=== PATIENT | male | born 1935 | race Caucasian/White ===

== ENCOUNTER 2018-07-28 09:48 | Emergency (ER) | payer MEDICARE ==
[2018-07-28 10:36] LABS: #Eosinphils 0.2 thou/uL (0.0-0.7); #Lymphocytes 1.1 thou/uL (1.20-3.40); #Monocytes 0.8 thou/uL (0.11-0.59); #Neutrophils 3.7 thou/uL (1.40-6.50); %Basophils 0.5 % (0.0-1.0); %Eosinophils 3.2 % (0.0-10.0); %Lymphocytes 19.3 % (21.0-51.0); %Monocytes 13.4 % (0.0-10.0); %Neutrophils 63.5 % (42.0-75.0); Hemoglobin 13.8 g/dL (14.0-18.0); Mean Corpuscular HGB CONC 32.9 g/dL (32.0-36.0); Mean Corpuscular Hemoglobin 27.4 pg (27.0-31.0); Mean Corpuscular Volume 83.3 fL (78.0-98.0); Mean Platelet Volume 7.3 fL (7.4-10.4); Platelet Count 242 thou/uL (130-400); RBC Distribution Width 12.1 % (11.5-14.5); Red Blood Cell (RBC) Count 5.05 mill/uL (4.70-6.10); White Blood Cell (WBC) Count 5.7 thou/uL (4.8-10.8)
--- NOTE | 2018-07-28 10:54 | RAD ---
PORTABLE CHEST ONE VIEW: 07/28/2018 10:30 a.m. HISTORY: Syncope. COMPARISON: 01/21/2014 FINDINGS: The heart size is normal. No focal areas of consolidation, pneumothoraces, or pleural effusions is s een. IMPRESSION: No radiographic evidence of acute cardiopulmonary process. POS: C
[2018-07-28 10:57] LABS: ALT (SGPT) 20 U/L (8-55); AST (SGOT) 18 U/L (5-34); Albumin 3.8 g/dL (3.4-4.8); Alkaline Phosphatase 118 U/L (40-150); Anion Gap 12 mmol/L (10-20); BUN (Urea Nitrogen) 20 mg/dL (8.4-25.7); Bilirubin, Total 0.4 mg/dL (0.2-1.2); Calc. Creatinine Clearance 0 mL/min (70-130); Calcium 9.2 mg/dL (7.8-10.44); Carbon Dioxide 26 mmol/L (23-31); Chloride 108 mmol/L (98-107); Estimated GFR-MDRD 42; Globulin 2.7 g/dL (2.4-3.5); Glucose 129 mg/dL (83-110); Potassium 4.8 mmol/L (3.5-5.1); Protein, Total 6.5 g/dL (5.8-8.1); Sodium 141 mmol/L (136-145)
[2018-07-28] MEDS ORDERED: Ondansetron PF 4 MG/2 ML Vial ONE (11:30)
[2018-07-28 13:16] LABS: Bilirubin Negative (Negative); Blood, Urine Negative (Negative); Clarity CLEAR (Clear); Glucose, Urine (Dipstick) Negative (Negative); Leukocyte Negative (Negative); Nitrite Negative (Negative); Protein, Urine (Dipstick) 30 mg/dL (Neg-Trace); Specific Gravity, Urine 1.011 (1.002-1.036)
[2018-07-28 13:21] LABS: Bacteria/HPF None Seen HPF (None Seen); Hyaline Casts/LPF 0-3 HYALINE CAST LPF (0-3 Hyaline); Pathc Cast-AUWi Flag 0.27 (0-2.49); RBC/HPF 0-3 HPF (0-3); Squamous Epithelial None Seen HPF (0-3); WBC/HPF None Seen HPF (0-3)
== END 2018-07-28 13:29 | disposition home or self-care (01) ==
LOC: ERS 09:48
DX: R55 Syncope and collapse (principal); R00.1 Bradycardia, unspecified; I10 Essential (primary) hypertension; E11.9 Type 2 diabetes mellitus without complications; E78.5 Hyperlipidemia, unspecified; I48.91 Unspecified atrial fibrillation; G20 Parkinson's disease; Z87.891 Personal history of nicotine dependence; Z79.899 Other long term (current) drug therapy; Z79.84 Long term (current) use of oral hypoglycemic drugs
CPT/HCPCS: 36415; 71045; 80053; 81003; 81015; 83880; 84484; 85025; 93005; 96374; J2405

== ENCOUNTER 2022-04-29 01:27 | Inpatient (IN) | payer MEDICARE, OTHER ==
[2022-04-29 02:51] VITALS: BMI 24.5
[2022-04-29] MEDS ORDERED: Acetaminophen 325 MG TAB PO PRN (03:05)
[2022-04-29] MEDS ORDERED: Ondansetron ODT 4 MG TAB PO PRN (03:05)
[2022-04-29] MEDS ORDERED: Acetaminophen 650 MG Suppository PR PRN (03:05)
[2022-04-29] MEDS ORDERED: Ondansetron PF 4 MG/2 ML Vial IVP PRN (03:05)
[2022-04-29] MEDS ORDERED: Benzonatate 100 MG CAP PO PRN (03:29)
[2022-04-29] MEDS ORDERED: Dextrose 50% Abboject 50 ML SYRINGE SLOW IVP PRN (04:38)
[2022-04-29] MEDS ORDERED: Dextrose 5% in Water 1,000 ML IV PRN (04:38)
[2022-04-29] MEDS ORDERED: HumaLOG 300 UNITS/3 ML VIAL SC PRN ×2 (04:38)
[2022-04-29] MEDS ORDERED: Melatonin 3 MG TAB PO PRN (04:46)
[2022-04-29] MEDS: Levothyroxine Sodium 100 MCG TAB PO SCH (05:50)
[2022-04-29] MEDS: Sodium Chloride 0.9% 1,000 ML IV SCH ×2 (05:51→16:24)
[2022-04-29] MEDS ORDERED: Albuterol 200 PUFF (6.7GM INHALER) INH PRN (07:20)
[2022-04-29 07:38] LABS: Mean Corpuscular HGB CONC 33.6 g/dL (32.0-36.0); Mean Corpuscular Hemoglobin 28.4 pg (27.0-31.0); Mean Corpuscular Volume 84.6 fl (78.0-98.0); Mean Platelet Volume 7.6 fL (7.4-10.4); Platelet Count 181 10x3/uL (130-400); RBC Distribution Width 12.7 % (11.5-14.5); Red Blood Cell (RBC) Count 4.57 mill/uL (4.70-6.10); White Blood Cell (WBC) Count 4.3 10x3/uL (4.8-10.8)
[2022-04-29 07:42] LABS: Anion Gap 13 mmol/L (10-20); BUN (Urea Nitrogen) 22 mg/dL (8.4-25.7); Calc. Creatinine Clearance 39 mL/min (70-130); Calcium 9.1 mg/dL (7.8-10.44); Carbon Dioxide 19 mmol/L (23-31); Chloride 109 mmol/L (98-107); Estimated GFR 37; Glucose 178 mg/dL (83-110); Potassium 3.6 mmol/L (3.5-5.1); Sodium 137 mmol/L (136-145)
[2022-04-29] MEDS ORDERED: Ascorbic Acid 500 mg Chewable Tablet PO SCH (09:00)
[2022-04-29] MEDS ORDERED: Zinc Sulfate 220 MG CAP PO SCH (09:00)
[2022-04-29] MEDS: Carvedilol 25 MG TAB PO SCH ×2 (09:46→16:25)
[2022-04-29] MEDS: Cholecalciferol (Vitamin D3) 400 UNITS TAB PO SCH (09:47)
[2022-04-29] MEDS: Enoxaparin Sodium 40 MG/0.4 ML SYRINGE SC SCH (09:47)
[2022-04-29] MEDS: Ascorbic Acid 500 mg Chewable Tablet PO SCH (09:47)
[2022-04-29] MEDS: Zinc Sulfate 220 MG CAP PO SCH (09:47)
[2022-04-29] MEDS: Lisinopril 5 MG TAB PO SCH (09:47)
[2022-04-29] MEDS: (RENAL) NIRMATRELVIR 150 MG/RITONAVIR 100 MG TABLET PO SCH ×2 (09:48→20:24)
[2022-04-29 10:00] LABS: Band 6 % (5-11); Lymphocytes 6 % (21-51); MDiff Complete? YES; Monocytes 5 % (0-10); Neutrophil 52 % (42-75); Platelet Morphology Comment Appears Adequate; RBC Morphology Normal; Reactive Lymphocytes 31 % (0-10)
[2022-04-29] MEDS: Doxepin HCl 25 MG CAP PO SCH (20:23)
[2022-04-29] MEDS ORDERED: Rosuvastatin 10 MG TAB PO SCH (21:00)
[2022-04-30] MEDS: Levothyroxine Sodium 100 MCG TAB PO SCH (05:59)
[2022-04-30] MEDS: Ascorbic Acid 500 mg Chewable Tablet PO SCH (08:51)
[2022-04-30] MEDS: Enoxaparin Sodium 40 MG/0.4 ML SYRINGE SC SCH (08:51)
[2022-04-30] MEDS: Zinc Sulfate 220 MG CAP PO SCH (08:51)
[2022-04-30] MEDS: Lisinopril 5 MG TAB PO SCH (08:51)
[2022-04-30] MEDS: Cholecalciferol (Vitamin D3) 400 UNITS TAB PO SCH (08:51)
[2022-04-30] MEDS: Carvedilol 25 MG TAB PO SCH ×2 (08:51→16:21)
[2022-04-30] MEDS: (RENAL) NIRMATRELVIR 150 MG/RITONAVIR 100 MG TABLET PO SCH ×2 (08:56→21:48)
[2022-04-30] MEDS ORDERED: Cepastat Lozenges 1 LOZ PO PRN (19:20)
[2022-04-30] MEDS ORDERED: Chloraseptic Spray 180 ml Bottle PO PRN (20:10)
[2022-04-30] MEDS: Doxepin HCl 25 MG CAP PO SCH (21:47)
[2022-05-01] MEDS: Levothyroxine Sodium 100 MCG TAB PO SCH (05:19)
[2022-05-01 06:35] LABS: Hemoglobin 12.8 g/dL (14.0-18.0); Mean Corpuscular HGB CONC 33.8 g/dL (32.0-36.0); Mean Corpuscular Hemoglobin 28.9 pg (27.0-31.0); Mean Corpuscular Volume 85.4 fl (78.0-98.0); Mean Platelet Volume 7.4 fL (7.4-10.4); Platelet Count 174 10x3/uL (130-400); RBC Distribution Width 12.8 % (11.5-14.5); Red Blood Cell (RBC) Count 4.42 mill/uL (4.70-6.10); White Blood Cell (WBC) Count 4.7 10x3/uL (4.8-10.8)
[2022-05-01 06:44] LABS: Anion Gap 14 mmol/L (10-20); BUN (Urea Nitrogen) 21 mg/dL (8.4-25.7); Calc. Creatinine Clearance 42 mL/min (70-130); Calcium 9.1 mg/dL (7.8-10.44); Carbon Dioxide 21 mmol/L (23-31); Chloride 109 mmol/L (98-107); Estimated GFR 41; Glucose 91 mg/dL (83-110); Potassium 3.5 mmol/L (3.5-5.1); Sodium 140 mmol/L (136-145)
[2022-05-01 07:27] LABS: Eosinophils 3 % (0-10); Lymphocytes 12 % (21-51); MDiff Complete? YES; Monocytes 10 % (0-10); Neutrophil 74 % (42-75); Platelet Morphology Comment Appears Adequate
[2022-05-01] MEDS: glipiZIDE 5 MG TAB PO SCH (09:04)
[2022-05-01] MEDS: Zinc Sulfate 220 MG CAP PO SCH (09:04)
[2022-05-01] MEDS: Enoxaparin Sodium 40 MG/0.4 ML SYRINGE SC SCH (09:04)
[2022-05-01] MEDS: Cholecalciferol (Vitamin D3) 400 UNITS TAB PO SCH (09:04)
[2022-05-01] MEDS: Carvedilol 25 MG TAB PO SCH ×2 (09:04→16:43)
[2022-05-01] MEDS: Lisinopril 5 MG TAB PO SCH (09:04)
[2022-05-01] MEDS: Ascorbic Acid 500 mg Chewable Tablet PO SCH (09:04)
[2022-05-01] MEDS: (RENAL) NIRMATRELVIR 150 MG/RITONAVIR 100 MG TABLET PO SCH ×2 (09:05→20:19)
[2022-05-01] MEDS: Doxepin HCl 25 MG CAP PO SCH (20:19)
[2022-05-02] MEDS: Levothyroxine Sodium 100 MCG TAB PO SCH (05:27)
[2022-05-02 06:31] LABS: #Basophils 0.1 thou/uL (0.0-0.2); #Eosinphils 0.2 thou/uL (0.0-0.7); #Lymphocytes 0.6 thou/uL (1.20-3.40); #Monocytes 0.7 thou/uL (0.11-0.59); #Neutrophils 3.7 thou/uL (1.40-6.50); %Eosinophils 3.8 % (0.0-10.0); %Lymphocytes 11.6 % (21.0-51.0); %Monocytes 13.1 % (0.0-10.0); %Neutrophils 69.6 % (42.0-75.0); Hemoglobin 12.9 g/dL (14.0-18.0); Mean Corpuscular Hemoglobin 29.1 pg (27.0-31.0); Mean Corpuscular Volume 85.5 fl (78.0-98.0); Mean Platelet Volume 7.1 fL (7.4-10.4); Platelet Count 195 10x3/uL (130-400); RBC Distribution Width 12.7 % (11.5-14.5); Red Blood Cell (RBC) Count 4.44 mill/uL (4.70-6.10); White Blood Cell (WBC) Count 5.3 10x3/uL (4.8-10.8)
[2022-05-02 06:54] LABS: Anion Gap 11 mmol/L (10-20); BUN (Urea Nitrogen) 23 mg/dL (8.4-25.7); Calc. Creatinine Clearance 48 mL/min (70-130); Calcium 8.8 mg/dL (7.8-10.44); Carbon Dioxide 21 mmol/L (23-31); Chloride 110 mmol/L (98-107); Estimated GFR 49; Glucose 143 mg/dL (83-110); Potassium 3.2 mmol/L (3.5-5.1); Sodium 139 mmol/L (136-145)
[2022-05-02] MEDS: Lisinopril 5 MG TAB PO SCH (08:50)
[2022-05-02] MEDS: Cholecalciferol (Vitamin D3) 400 UNITS TAB PO SCH (08:50)
[2022-05-02] MEDS: Ascorbic Acid 500 mg Chewable Tablet PO SCH (08:51)
[2022-05-02] MEDS: Enoxaparin Sodium 40 MG/0.4 ML SYRINGE SC SCH (08:51)
[2022-05-02] MEDS: Zinc Sulfate 220 MG CAP PO SCH (08:51)
[2022-05-02] MEDS: Carvedilol 25 MG TAB PO SCH ×2 (08:51→16:44)
[2022-05-02] MEDS: glipiZIDE 5 MG TAB PO SCH (08:51)
[2022-05-02] MEDS: (RENAL) NIRMATRELVIR 150 MG/RITONAVIR 100 MG TABLET PO SCH ×2 (08:53→21:05)
[2022-05-02] MEDS: Doxepin HCl 25 MG CAP PO SCH (21:05)
[2022-05-03] MEDS: Levothyroxine Sodium 100 MCG TAB PO SCH (05:26)
[2022-05-03 07:43] LABS: #Eosinphils 0.2 thou/uL (0.0-0.7); #Lymphocytes 0.9 thou/uL (1.20-3.40); #Monocytes 0.6 thou/uL (0.11-0.59); #Neutrophils 2.8 thou/uL (1.40-6.50); %Basophils 0.3 % (0.0-1.0); %Eosinophils 3.8 % (0.0-10.0); %Lymphocytes 19.2 % (21.0-51.0); %Monocytes 14.2 % (0.0-10.0); %Neutrophils 62.5 % (42.0-75.0); Hemoglobin 12.9 g/dL (14.0-18.0); Mean Corpuscular HGB CONC 33.1 g/dL (32.0-36.0); Mean Corpuscular Hemoglobin 28.2 pg (27.0-31.0); Mean Corpuscular Volume 85.3 fl (78.0-98.0); Mean Platelet Volume 7.1 fL (7.4-10.4); Platelet Count 198 10x3/uL (130-400); RBC Distribution Width 12.4 % (11.5-14.5); Red Blood Cell (RBC) Count 4.57 mill/uL (4.70-6.10); White Blood Cell (WBC) Count 4.4 10x3/uL (4.8-10.8)
[2022-05-03 07:56] LABS: Anion Gap 12 mmol/L (10-20); BUN (Urea Nitrogen) 24 mg/dL (8.4-25.7); Calc. Creatinine Clearance 47 mL/min (70-130); Carbon Dioxide 20 mmol/L (23-31); Chloride 111 mmol/L (98-107); Estimated GFR 47; Glucose 84 mg/dL (83-110); Potassium 3.3 mmol/L (3.5-5.1); Sodium 140 mmol/L (136-145)
[2022-05-03] MEDS: Enoxaparin Sodium 40 MG/0.4 ML SYRINGE SC SCH (08:44)
[2022-05-03] MEDS: Carvedilol 25 MG TAB PO SCH ×2 (08:44→16:26)
[2022-05-03] MEDS: Zinc Sulfate 220 MG CAP PO SCH (08:44)
[2022-05-03] MEDS: Ascorbic Acid 500 mg Chewable Tablet PO SCH (08:44)
[2022-05-03] MEDS: glipiZIDE 5 MG TAB PO SCH (08:44)
[2022-05-03] MEDS: Cholecalciferol (Vitamin D3) 400 UNITS TAB PO SCH (08:44)
[2022-05-03] MEDS: Lisinopril 5 MG TAB PO SCH (08:45)
[2022-05-03] MEDS: (RENAL) NIRMATRELVIR 150 MG/RITONAVIR 100 MG TABLET PO SCH ×2 (08:52→20:53)
[2022-05-03] MEDS: Doxepin HCl 25 MG CAP PO SCH (20:53)
[2022-05-04] MEDS: Levothyroxine Sodium 100 MCG TAB PO SCH (05:41)
[2022-05-04 06:45] LABS: #Eosinphils 0.2 thou/uL (0.0-0.7); #Lymphocytes 0.9 thou/uL (1.20-3.40); #Monocytes 0.7 thou/uL (0.11-0.59); #Neutrophils 3.4 thou/uL (1.40-6.50); %Basophils 0.4 % (0.0-1.0); %Eosinophils 3.3 % (0.0-10.0); %Lymphocytes 17.9 % (21.0-51.0); %Monocytes 12.7 % (0.0-10.0); %Neutrophils 65.7 % (42.0-75.0); Hemoglobin 12.8 g/dL (14.0-18.0); Mean Corpuscular HGB CONC 33.1 g/dL (32.0-36.0); Mean Corpuscular Hemoglobin 28.1 pg (27.0-31.0); Mean Corpuscular Volume 84.9 fl (78.0-98.0); Mean Platelet Volume 7.1 fL (7.4-10.4); Platelet Count 203 10x3/uL (130-400); RBC Distribution Width 12.5 % (11.5-14.5); Red Blood Cell (RBC) Count 4.54 mill/uL (4.70-6.10); White Blood Cell (WBC) Count 5.2 10x3/uL (4.8-10.8)
[2022-05-04 07:07] LABS: Anion Gap 11 mmol/L (10-20); BUN (Urea Nitrogen) 22 mg/dL (8.4-25.7); Calc. Creatinine Clearance 42 mL/min (70-130); Calcium 9.1 mg/dL (7.8-10.44); Carbon Dioxide 25 mmol/L (23-31); Chloride 108 mmol/L (98-107); Estimated GFR 41; Glucose 99 mg/dL (83-110); Potassium 3.8 mmol/L (3.5-5.1); Sodium 140 mmol/L (136-145)
[2022-05-04] MEDS: glipiZIDE 5 MG TAB PO SCH (09:04)
[2022-05-04] MEDS: Ascorbic Acid 500 mg Chewable Tablet PO SCH (09:04)
[2022-05-04] MEDS: Lisinopril 5 MG TAB PO SCH (09:04)
[2022-05-04] MEDS: Zinc Sulfate 220 MG CAP PO SCH (09:04)
[2022-05-04] MEDS: Carvedilol 25 MG TAB PO SCH ×2 (09:04→16:32)
[2022-05-04] MEDS: Enoxaparin Sodium 40 MG/0.4 ML SYRINGE SC SCH (09:05)
[2022-05-04] MEDS: Cholecalciferol (Vitamin D3) 400 UNITS TAB PO SCH (09:05)
[2022-05-04] MEDS: Doxepin HCl 25 MG CAP PO SCH (20:36)
[2022-05-05] MEDS: Levothyroxine Sodium 100 MCG TAB PO SCH (06:10)
[2022-05-05 07:23] LABS: #Eosinphils 0.2 thou/uL (0.0-0.7); #Lymphocytes 0.8 thou/uL (1.20-3.40); #Monocytes 0.6 thou/uL (0.11-0.59); #Neutrophils 3.6 thou/uL (1.40-6.50); %Basophils 0.1 % (0.0-1.0); %Eosinophils 3.6 % (0.0-10.0); %Lymphocytes 14.6 % (21.0-51.0); %Monocytes 11.8 % (0.0-10.0); %Neutrophils 69.8 % (42.0-75.0); Hemoglobin 12.5 g/dL (14.0-18.0); Mean Corpuscular HGB CONC 32.5 g/dL (32.0-36.0); Mean Corpuscular Hemoglobin 27.6 pg (27.0-31.0); Mean Corpuscular Volume 84.9 fl (78.0-98.0); Platelet Count 218 10x3/uL (130-400); RBC Distribution Width 12.3 % (11.5-14.5); Red Blood Cell (RBC) Count 4.55 mill/uL (4.70-6.10); White Blood Cell (WBC) Count 5.2 10x3/uL (4.8-10.8)
[2022-05-05 07:38] LABS: Anion Gap 11 mmol/L (10-20); BUN (Urea Nitrogen) 18 mg/dL (8.4-25.7); Calc. Creatinine Clearance 47 mL/min (70-130); Calcium 9.1 mg/dL (7.8-10.44); Carbon Dioxide 24 mmol/L (23-31); Chloride 108 mmol/L (98-107); Estimated GFR 48; Glucose 99 mg/dL (83-110); Potassium 3.6 mmol/L (3.5-5.1); Sodium 139 mmol/L (136-145)
[2022-05-05 08:42] VITALS: BP 131/63; TEMP 97.6
[2022-05-05] MEDS: Zinc Sulfate 220 MG CAP PO SCH (08:58)
[2022-05-05] MEDS: Cholecalciferol (Vitamin D3) 400 UNITS TAB PO SCH (08:58)
[2022-05-05] MEDS: Lisinopril 5 MG TAB PO SCH (08:58)
[2022-05-05] MEDS: glipiZIDE 5 MG TAB PO SCH (08:58)
[2022-05-05] MEDS: Ascorbic Acid 500 mg Chewable Tablet PO SCH (08:58)
[2022-05-05] MEDS: Enoxaparin Sodium 40 MG/0.4 ML SYRINGE SC SCH (08:58)
[2022-05-05] MEDS: Carvedilol 25 MG TAB PO SCH (08:58)
== END 2022-05-05 17:20 | DRG 178 ==
LOC: INTOOBSV 02:46 → SURG A 02:46 → T4-B 15:50 → OBSVTOIN 04-30 11:15
PROVIDERS: ADMIT Internal Medicine; ATTEND Internal Medicine
PROC: XW0DXF5 Introduction of Other New Technology Therapeutic Substance into Mouth and Pharynx, External Approach, New Technology Group 5 (ICD-10-PCS; principal; 2022-04-29)
PROC: 8E0ZXY6 Isolation (ICD-10-PCS; 2022-04-29)
DX: U07.1 COVID-19 (principal); N17.9 Acute kidney failure, unspecified; R33.9 Retention of urine, unspecified; E87.6 Hypokalemia; G20 Parkinson's disease; E78.5 Hyperlipidemia, unspecified; N18.9 Chronic kidney disease, unspecified; E11.22 Type 2 diabetes mellitus with diabetic chronic kidney disease; E03.9 Hypothyroidism, unspecified; I48.91 Unspecified atrial fibrillation; Z79.899 Other long term (current) drug therapy; Z79.890 Hormone replacement therapy; Z79.4 Long term (current) use of insulin; Z85.51 Personal history of malignant neoplasm of bladder; Z90.89 Acquired absence of other organs
CPT/HCPCS: 36415; 36416; 80048; 85025; J1650; J2405; J7050; Q0162

== ENCOUNTER 2022-07-30 09:21 | Inpatient (IN) | payer OTHER ==
[2022-07-30] MEDS ORDERED: Acetaminophen 325 MG TAB PO PRN (13:45)
[2022-07-30] MEDS ORDERED: HumaLOG 300 UNITS/3 ML VIAL SC PRN (13:49)
[2022-07-30] MEDS ORDERED: Dextrose 5% in Water 1,000 ML IV PRN (13:49)
[2022-07-30] MEDS ORDERED: Dextrose 50% Abboject 50 ML SYRINGE SLOW IVP PRN (13:49)
[2022-07-30] MEDS ORDERED: HYDROcodone/Acetaminophen 5/325 mg Tablet ONE (14:58)
[2022-07-30] MEDS: Sodium Chloride 0.9% 1,000 ML IV SCH (16:49)
[2022-07-30 16:53] VITALS: BMI 30.8
[2022-07-30 17:35] LABS: Hemoglobin A1c 6.9 % (4.0-6.0)
[2022-07-31] MEDS: Sodium Chloride 0.9% 1,000 ML IV SCH (04:58)
[2022-07-31 06:35] LABS: Hemoglobin 11.6 g/dL (14.0-18.0); Mean Corpuscular HGB CONC 33.7 g/dL (32.0-36.0); Mean Corpuscular Hemoglobin 28.8 pg (27.0-31.0); Mean Corpuscular Volume 85.5 fl (78.0-98.0); Mean Platelet Volume 7.7 fL (7.4-10.4); Platelet Count 180 10x3/uL (130-400); RBC Distribution Width 12.5 % (11.5-14.5); Red Blood Cell (RBC) Count 4.01 mill/uL (4.70-6.10); White Blood Cell (WBC) Count 6.1 10x3/uL (4.8-10.8)
[2022-07-31 06:51] LABS: Anion Gap 10 mmol/L (10-20); BUN (Urea Nitrogen) 19 mg/dL (8.4-25.7); Calc. Creatinine Clearance 55 mL/min (70-130); Calcium 8.7 mg/dL (7.8-10.44); Carbon Dioxide 20 mmol/L (23-31); Chloride 112 mmol/L (98-107); Estimated GFR 46; Glucose 149 mg/dL (83-110); Potassium 3.7 mmol/L (3.5-5.1); Sodium 138 mmol/L (136-145)
[2022-07-31 07:30] LABS: Band 3 % (5-11); Eosinophils 6 % (0-10); Lymphocytes 13 % (21-51); MDiff Complete? YES; Monocytes 10 % (0-10); Neutrophil 61 % (42-75); Platelet Morphology Comment Appears Adequate; RBC Morphology Normal; Reactive Lymphocytes 6 % (0-10)
[2022-07-31] MEDS ORDERED: HYDROcodone/Acetaminophen 5/325 mg Tablet PO PRN (08:52)
[2022-07-31] MEDS ORDERED: Carvedilol 25 MG TAB PO SCH (09:15)
[2022-07-31] MEDS: Cholecalciferol 1,000 UNITS (25 MCG) TAB PO SCH (09:18)
[2022-07-31] MEDS: Lisinopril 5 MG TAB PO SCH (09:18)
[2022-07-31] MEDS ORDERED: Melatonin 3 MG TAB PO PRN (09:47)
[2022-07-31] MEDS: Carvedilol 25 MG TAB PO SCH (16:31)
[2022-07-31] MEDS: HYDROcodone/Acetaminophen 5/325 mg Tablet PO PRN ×2 (16:33→20:18)
[2022-07-31] MEDS: HumaLOG 300 UNITS/3 ML VIAL SC PRN (17:42)
[2022-07-31] MEDS: Gabapentin 300 MG CAP PO SCH (20:14)
[2022-07-31] MEDS: Doxepin HCl 25 MG CAP PO SCH (20:15)
[2022-07-31] MEDS: Rosuvastatin 10 MG TAB PO SCH (20:15)
[2022-08-01] MEDS: Levothyroxine Sodium 100 MCG TAB PO SCH (05:33)
[2022-08-01 06:10] LABS: #Eosinphils 0.3 thou/uL (0.0-0.7); #Lymphocytes 0.8 thou/uL (1.20-3.40); #Monocytes 1.1 thou/uL (0.11-0.59); #Neutrophils 5.5 thou/uL (1.40-6.50); %Basophils 0.5 % (0.0-1.0); %Eosinophils 4.4 % (0.0-10.0); %Lymphocytes 10.6 % (21.0-51.0); %Monocytes 13.6 % (0.0-10.0); %Neutrophils 70.9 % (42.0-75.0); Hemoglobin 12.2 g/dL (14.0-18.0); Mean Corpuscular HGB CONC 34.2 g/dL (32.0-36.0); Mean Corpuscular Hemoglobin 29.4 pg (27.0-31.0); Mean Corpuscular Volume 85.9 fl (78.0-98.0); Mean Platelet Volume 7.8 fL (7.4-10.4); Platelet Count 170 10x3/uL (130-400); RBC Distribution Width 12.6 % (11.5-14.5); Red Blood Cell (RBC) Count 4.15 mill/uL (4.70-6.10); White Blood Cell (WBC) Count 7.8 10x3/uL (4.8-10.8)
[2022-08-01 06:35] LABS: Anion Gap 10 mmol/L (10-20); BUN (Urea Nitrogen) 16 mg/dL (8.4-25.7); Calc. Creatinine Clearance 52 mL/min (70-130); Calcium 9.1 mg/dL (7.8-10.44); Carbon Dioxide 23 mmol/L (23-31); Chloride 111 mmol/L (98-107); Estimated GFR 43; Glucose 158 mg/dL (83-110); Potassium 4.1 mmol/L (3.5-5.1); Sodium 140 mmol/L (136-145)
[2022-08-01] MEDS: glipiZIDE 5 MG TAB PO SCH (09:08)
[2022-08-01] MEDS: Cholecalciferol 1,000 UNITS (25 MCG) TAB PO SCH (09:08)
[2022-08-01] MEDS: Carvedilol 25 MG TAB PO SCH ×2 (09:08→17:17)
[2022-08-01] MEDS: Lisinopril 5 MG TAB PO SCH (09:08)
[2022-08-01] MEDS: HYDROcodone/Acetaminophen 5/325 mg Tablet PO PRN ×2 (11:00→17:19)
[2022-08-01] MEDS: HumaLOG 300 UNITS/3 ML VIAL SC PRN (12:02)
[2022-08-01] MEDS ORDERED: Polyethylene Glycol 3350 17 GM Packet PO PRN (17:46)
[2022-08-01] MEDS: Gabapentin 300 MG CAP PO SCH (20:59)
[2022-08-01] MEDS: Doxepin HCl 25 MG CAP PO SCH (20:59)
[2022-08-01] MEDS: Senokot S 8.6-50 MG TAB PO SCH (21:00)
[2022-08-01] MEDS: Rosuvastatin 10 MG TAB PO SCH (21:00)
[2022-08-02] MEDS: glipiZIDE 5 MG TAB PO SCH (06:17)
[2022-08-02] MEDS: Levothyroxine Sodium 100 MCG TAB PO SCH (06:17)
[2022-08-02] MEDS ORDERED: Bisacodyl 10 MG SUPP PR SCH (08:15)
[2022-08-02] MEDS: Senokot S 8.6-50 MG TAB PO SCH ×2 (08:33→20:24)
[2022-08-02] MEDS: Lisinopril 5 MG TAB PO SCH (08:33)
[2022-08-02] MEDS: Cholecalciferol 1,000 UNITS (25 MCG) TAB PO SCH (08:34)
[2022-08-02] MEDS: Carvedilol 25 MG TAB PO SCH ×2 (08:34→16:19)
[2022-08-02] MEDS ORDERED: Magnesium Citrate 300 ML BOT PO SCH (09:00)
[2022-08-02] MEDS: HYDROcodone/Acetaminophen 5/325 mg Tablet PO PRN ×3 (12:50→20:26)
[2022-08-02] MEDS: HumaLOG 300 UNITS/3 ML VIAL SC PRN (17:07)
[2022-08-02] MEDS: Doxepin HCl 25 MG CAP PO SCH (20:23)
[2022-08-02] MEDS: Gabapentin 300 MG CAP PO SCH (20:24)
[2022-08-02] MEDS: Rosuvastatin 10 MG TAB PO SCH (20:24)
[2022-08-03] MEDS: glipiZIDE 5 MG TAB PO SCH (06:03)
[2022-08-03] MEDS: Levothyroxine Sodium 100 MCG TAB PO SCH (06:03)
[2022-08-03] MEDS: Lisinopril 5 MG TAB PO SCH (09:24)
[2022-08-03] MEDS: Senokot S 8.6-50 MG TAB PO SCH ×2 (09:24→21:01)
[2022-08-03] MEDS: Cholecalciferol 1,000 UNITS (25 MCG) TAB PO SCH (09:25)
[2022-08-03] MEDS: Carvedilol 25 MG TAB PO SCH ×2 (09:26→16:36)
[2022-08-03] MEDS ORDERED: Mineral Oil ENEMA PR PRN (16:04)
[2022-08-03] MEDS ORDERED: Mineral Oil ENEMA PR SCH (16:15)
[2022-08-03] MEDS: Doxepin HCl 25 MG CAP PO SCH (21:00)
[2022-08-03] MEDS: Gabapentin 300 MG CAP PO SCH (21:01)
[2022-08-03] MEDS: Rosuvastatin 10 MG TAB PO SCH (21:01)
[2022-08-04] MEDS: glipiZIDE 5 MG TAB PO SCH (06:14)
[2022-08-04] MEDS: Levothyroxine Sodium 100 MCG TAB PO SCH (06:14)
[2022-08-04] MEDS: Cholecalciferol 1,000 UNITS (25 MCG) TAB PO SCH (08:59)
[2022-08-04] MEDS: Carvedilol 25 MG TAB PO SCH ×2 (08:59→17:43)
[2022-08-04] MEDS: Senokot S 8.6-50 MG TAB PO SCH ×2 (08:59→20:18)
[2022-08-04] MEDS: Lisinopril 5 MG TAB PO SCH (08:59)
[2022-08-04] MEDS: HYDROcodone/Acetaminophen 5/325 mg Tablet PO PRN (11:43)
[2022-08-04] MEDS ORDERED: Mineral Oil ENEMA PR SCH (17:30)
[2022-08-04] MEDS ORDERED: GoLYTELY 4,000 ml Bottle PO SCH (17:30)
[2022-08-04] MEDS: Gabapentin 300 MG CAP PO SCH (20:17)
[2022-08-04] MEDS: Doxepin HCl 25 MG CAP PO SCH (20:17)
[2022-08-04] MEDS: Rosuvastatin 10 MG TAB PO SCH (20:17)
[2022-08-05] MEDS: Levothyroxine Sodium 100 MCG TAB PO SCH (05:41)
[2022-08-05] MEDS: glipiZIDE 5 MG TAB PO SCH (05:41)
[2022-08-05] MEDS: Carvedilol 25 MG TAB PO SCH (08:36)
[2022-08-05] MEDS: Senokot S 8.6-50 MG TAB PO SCH (08:36)
[2022-08-05] MEDS: Cholecalciferol 1,000 UNITS (25 MCG) TAB PO SCH (08:36)
[2022-08-05] MEDS: Lisinopril 5 MG TAB PO SCH (08:36)
[2022-08-05] MEDS: HYDROcodone/Acetaminophen 5/325 mg Tablet PO PRN (08:37)
[2022-08-05 11:46] VITALS: BP 115/71; TEMP 97.7
== END 2022-08-05 14:59 | DRG 563 ==
LOC: ERS 09:21 → SURG A 13:43 → OBSVTOIN 08-02 09:46 → SJJU 08-03 00:12
PROVIDERS: ADMIT Family Medicine; ATTEND Family Medicine
DX: S82.832A Other fracture of upper and lower end of left fibula, initial encounter for closed fracture (principal); N17.9 Acute kidney failure, unspecified; W01.0XXA Fall on same level from slipping, tripping and stumbling without subsequent striking against object, initial encounter; K25.9 Gastric ulcer, unspecified as acute or chronic, without hemorrhage or perforation; N18.30 Chronic kidney disease, stage 3 unspecified; I48.0 Paroxysmal atrial fibrillation; K59.00 Constipation, unspecified; E11.22 Type 2 diabetes mellitus with diabetic chronic kidney disease; I12.9 Hypertensive chronic kidney disease with stage 1 through stage 4 chronic kidney disease, or unspecified chronic kidney disease; E78.5 Hyperlipidemia, unspecified; I25.10 Atherosclerotic heart disease of native coronary artery without angina pectoris; G20 Parkinson's disease; Z95.810 Presence of automatic (implantable) cardiac defibrillator; Z85.51 Personal history of malignant neoplasm of bladder; Z92.21 Personal history of antineoplastic chemotherapy; Z92.3 Personal history of irradiation; Z79.899 Other long term (current) drug therapy; Z79.890 Hormone replacement therapy; Z79.84 Long term (current) use of oral hypoglycemic drugs; Z90.49 Acquired absence of other specified parts of digestive tract; Z90.89 Acquired absence of other organs; Z87.891 Personal history of nicotine dependence
CPT/HCPCS: 29515; 36415; 36416; 74018; 80048; 83036; 85025; G0378; J1815; J7050